=== PATIENT | female | born 1955 | race Two or more races ===

== ENCOUNTER 2016-12-21 20:06 | Emergency (ER) | payer MEDICAID ==
[~2016-12-21] VITALS: Ht 160 cm; Wt 92.0 kg
[2016-12-22] MEDS ORDERED: INSULIN REGULAR (HUMULIN R) 300UNITS/3ML SUBCUT ONE ×2 (00:30→02:00)
[2016-12-22] MEDS ORDERED: SODIUM CHLORIDE 0.9% 500 ML IV ONE (00:30)
[2016-12-22 00:32] LABS: CLARITY URINE CLEAR (CLEAR); COLOR URINE YELLOW (YELLOW); GLUCOSE URINE 3+ (NEGATIVE); KETONES URINE NEGATIVE (NEGATIVE); LEUKOCYTE ESTERASE URINE NEGATIVE (NEGATIVE); NITRITE URINE NEGATIVE (NEGATIVE); OCCULT BLOOD URINE NEGATIVE (NEGATIVE); PH URINE 6.5 (4.5-8.0); PROTEIN URINE NEGATIVE (NEGATIVE); SPECIFIC GRAVITY URINE 1.023 (1.005-1.030); UROBILINOGEN URINE 0.2 E.U./dL (0.2-1.0)
[2016-12-22 00:37] LABS: BASOPHILS % 0.5 % (0.0-2.0); EOSINOPHILS % 0.3 % (0.0-5.0); HEMATOCRIT. 42.6 % (36.0-48.0); HEMOGLOBIN. 14.1 g/dL (12.0-16.0); LYMPHOCYTES % 40.3 % (20.0-50.0); MEAN CORPUSCULAR HGB CONC 33.1 g/dL (31.0-37.0); MEAN CORPUSCULAR VOLUME 84.4 fL (81.0-99.0); MEAN PLATELET VOLUME 9.1 fl (7.4-10.4); MONOCYTES % 6.2 % (2.0-8.0); NEUTROPHILS % 52.7 % (40.0-76.0); PLATELET 220 x1000/uL (130-400); RED BLOOD CELL COUNT 5.04 mill/uL (4.2-5.4); RED CELL DISTRIBUTION WIDTH 14.2 % (11.6-14.6); WHITE BLOOD COUNT 11.7 x1000/uL (4.5-11.0)
[2016-12-22 00:40] LABS: CHLORIDE 95 mEq/L (98-107); INDEX HEMOLYSI 1 (1-3); INDEX ICTERIC 1 (1-4); INDEX LIPEMIC 1 (1-3)
[2016-12-22 00:48] LABS: ALANINE AMINOTRANSFERASE 129 IU/L (13-61); ALBUMIN 3.1 g/dL (3.4-5.0); ANION GAP 15; CALCIUM 9.4 mg/dL (8.5-10.1); CARBON DIOXIDE 28 mEq/L (21-32); UREA NITROGEN BLOOD 16 mg/dL (7-21); eGFR > 60 mL/min (>60)
[2016-12-22 01:11] LABS: SQUAMOUS EPITHELIAL CELL URINE FEW /lpf (RARE/1+)
[2016-12-22 01:12] LABS: BACTERIA URINE TRACE; RBC URINE 0-2 /hpf (0-2); WBC URINE 0-2 /hpf (0-2)
[2016-12-22 01:15] VITALS: BP 135/100
== END 2016-12-22 03:05 | disposition home or self-care (01) ==
LOC: ER 20:29
DX: E11.65 Type 2 diabetes mellitus with hyperglycemia (principal); N17.0 Acute kidney failure with tubular necrosis; E87.8 Other disorders of electrolyte and fluid balance, not elsewhere classified; R74.0 Nonspecific elevation of levels of transaminase and lactic acid dehydrogenase [LDH]; R11.2 Nausea with vomiting, unspecified; R81 Glycosuria; E11.21 Type 2 diabetes mellitus with diabetic nephropathy; E86.0 Dehydration; E87.1 Hypo-osmolality and hyponatremia; R73.9 Hyperglycemia, unspecified; R79.0 Abnormal level of blood mineral; E88.09 Other disorders of plasma-protein metabolism, not elsewhere classified; D72.828 Other elevated white blood cell count; R82.71 Bacteriuria; J45.909 Unspecified asthma, uncomplicated; I10 Essential (primary) hypertension; Z91.14 Patient's other noncompliance with medication regimen; Z98.890 Other specified postprocedural states
CPT/HCPCS: 36415; 71010; 80053; 81001; 82962; 85025; 93005; 96360; 96372; 99285; J1815; J7040; J7030

== ENCOUNTER 2017-04-18 14:00 | Emergency (ER) | payer MEDICAID ==
[~2017-04-18] VITALS: Ht 165.1 cm; Wt 77.0 kg
[2017-04-18] MEDS ORDERED: DIPHENHYDRAMINE 50MG/ML VIAL IV ONE (14:30)
[2017-04-18] MEDS ORDERED: NON FORMULARY PATIENT HOME MED EA XX SCH (14:30)
[2017-04-18] MEDS ORDERED: PROCHLORPERAZINE 10MG/2ML VIAL IV NR (14:45)
[2017-04-18] MEDS ORDERED: SODIUM CHLORIDE 0.9% 1,000 ML IV ONE (15:12)
[2017-04-18 15:43] LABS: EOSINOPHILS % 2.6 % (0.0-5.0); HEMATOCRIT. 40.6 % (36.0-48.0); HEMOGLOBIN. 13.9 g/dL (12.0-16.0); LYMPHOCYTES % 39.2 % (20.0-50.0); MEAN CORPUSCULAR HEMOGLOBIN 28.3 pg (28.0-32.0); MEAN CORPUSCULAR VOLUME 82.4 fL (81.0-99.0); MEAN PLATELET VOLUME 9.7 fl (7.4-10.4); MONOCYTES % 7.1 % (2.0-8.0); NEUTROPHILS % 50.1 % (40.0-76.0); PLATELET 215 x1000/uL (130-400); RED BLOOD CELL COUNT 4.92 mill/uL (4.2-5.4); RED CELL DISTRIBUTION WIDTH 14.6 % (11.6-14.6)
[2017-04-18 15:44] LABS: CLARITY URINE CLEAR (CLEAR); COLOR URINE YELLOW (YELLOW); GLUCOSE URINE 2+ (NEGATIVE); KETONES URINE NEGATIVE (NEGATIVE); LEUKOCYTE ESTERASE URINE NEGATIVE (NEGATIVE); NITRITE URINE NEGATIVE (NEGATIVE); OCCULT BLOOD URINE NEGATIVE (NEGATIVE); PROTEIN URINE 1+ (NEGATIVE); SPECIFIC GRAVITY URINE 1.007 (1.005-1.030); UROBILINOGEN URINE 0.2 E.U./dL (0.2-1.0)
[2017-04-18 15:51] LABS: PROTHROMBIN TIME 10.2 sec
[2017-04-18 15:52] LABS: CARBON DIOXIDE 26 mEq/L (21-32); CHLORIDE 102 mEq/L (98-107)
[2017-04-18 16:00] LABS: BETA HYDROXYBUTYRATE 0.2 mMol/L (0.0-0.3); TROPONIN I < 0.02 ng/mL (0.00-0.04)
[2017-04-18] MEDS ORDERED: MORPHINE SULFATE 4 MG/ML CPJ (NOT FOR IM USE) IV ONE (16:00)
[2017-04-18 17:43] VITALS: BP 154/96
== END 2017-04-18 18:11 | disposition home or self-care (01) ==
LOC: ER 14:15
DX: R51 Headache (principal); E11.65 Type 2 diabetes mellitus with hyperglycemia; I10 Essential (primary) hypertension; J45.909 Unspecified asthma, uncomplicated; Z79.4 Long term (current) use of insulin
CPT/HCPCS: 36415; 70450; 80053; 81001; 82010; 82962; 84484; 85025; 85610; 93005; 96374; 96375; 99285; J0780; J1200; J2270; Z7610; J7030

== ENCOUNTER 2017-07-04 11:59 | Emergency (ER) | payer MEDICAID ==
[~2017-07-04] VITALS: Ht 160 cm; Wt 91.0 kg
[2017-07-04 14:55] LABS: BASOPHILS % 0.9 % (0.0-2.0); EOSINOPHILS % 1.8 % (0.0-5.0); HEMOGLOBIN. 14.2 g/dL (12.0-16.0); LYMPHOCYTES % 41.4 % (20.0-50.0); MEAN CORPUSCULAR HEMOGLOBIN 27.7 pg (28.0-32.0); MEAN CORPUSCULAR VOLUME 81.9 fL (81.0-99.0); MEAN PLATELET VOLUME 8.9 fl (7.4-10.4); MONOCYTES % 5.6 % (2.0-8.0); NEUTROPHILS % 50.3 % (40.0-76.0); PLATELET 212 x1000/uL (130-400); RED BLOOD CELL COUNT 5.12 mill/uL (4.2-5.4); RED CELL DISTRIBUTION WIDTH 13.7 % (11.6-14.6)
[2017-07-04 15:01] LABS: PROTHROMBIN TIME 10.7 sec (9.4-11.6)
[2017-07-04 15:12] LABS: CARBON DIOXIDE 28 mEq/L (21-32); CHLORIDE 102 mEq/L (98-107); TROPONIN I < 0.02 ng/mL (0.00-0.04)
[2017-07-04] MEDS ORDERED: DIPHENHYDRAMINE 25MG CAPSULE PO ONE (15:45)
[2017-07-04] MEDS ORDERED: METOCLOPRAMIDE HCL 5MG TABLET PO ONE (15:45)
[2017-07-04] MEDS ORDERED: ACETAMINOPHEN 325MG TABLET PO ONE (15:45)
[2017-07-04] MEDS ORDERED: KETOROLAC 60MG/2ML VIAL IM ONE (15:45)
[2017-07-04 16:04] LABS: CLARITY URINE CLEAR (CLEAR); COLOR URINE YELLOW (YELLOW); GLUCOSE URINE 1+ (NEGATIVE); KETONES URINE NEGATIVE (NEGATIVE); LEUKOCYTE ESTERASE URINE NEGATIVE (NEGATIVE); NITRITE URINE NEGATIVE (NEGATIVE); OCCULT BLOOD URINE NEGATIVE (NEGATIVE); PROTEIN URINE 1+ (NEGATIVE); UROBILINOGEN URINE 0.2 E.U./dL (0.2-1.0)
[2017-07-04] MEDS ORDERED: METOCLOPRAMIDE HCL 5MG TABLET PO SCH (16:15)
[2017-07-04 17:41] VITALS: BP 145/72
== END 2017-07-04 17:57 | disposition home or self-care (01) ==
LOC: ER 11:59
DX: R51 Headache (principal)
CPT/HCPCS: 36415; 70450; 71010; 80053; 81001; 81025; 83880; 84484; 85025; 85610; 93005; 99285; Z7610; J8597; Q0163

== ENCOUNTER 2018-02-23 09:55 | Emergency (ER) | payer MEDICAID ==
[~2018-02-23] VITALS: Ht 162.6 cm; Wt 92.9 kg
[~2018-02-23 09:55] MED LIST: GLIP10TA10 PO; INSLIS SUBCUT; LANTUSUD SUBCUT; LOSA100T14 PO; METF10002 PO
[2018-02-23] MEDS ORDERED: VALACYCLOVIR HCL 500MG TABLET PO STA (10:58)
[2018-02-23] MEDS ORDERED: PREDNISONE 20MG TABLET PO ONE (11:00)
[2018-02-23 11:11] LABS: CLARITY URINE CLEAR (CLEAR); COLOR URINE YELLOW (YELLOW); KETONES URINE TRACE (NEGATIVE); LEUKOCYTE ESTERASE URINE NEGATIVE (NEGATIVE); NITRITE URINE NEGATIVE (NEGATIVE); OCCULT BLOOD URINE NEGATIVE (NEGATIVE); PROTEIN URINE TRACE (NEGATIVE); SPECIFIC GRAVITY URINE 1.009 (1.005-1.030); UROBILINOGEN URINE 0.2 E.U./dL (0.2-1.0)
[2018-02-23 11:23] LABS: BASOPHILS % 0.8 % (0.0-2.0); HEMATOCRIT. 40.7 % (36.0-48.0); HEMOGLOBIN. 13.9 g/dL (12.0-16.0); LYMPHOCYTES % 37.2 % (20.0-50.0); MEAN CORPUSCULAR HEMOGLOBIN 28.7 pg (28.0-32.0); MEAN CORPUSCULAR VOLUME 83.9 fL (81.0-99.0); MEAN PLATELET VOLUME 8.9 fl (7.4-10.4); MONOCYTES % 6.3 % (2.0-8.0); NEUTROPHILS % 53.7 % (40.0-76.0); PLATELET 209 x1000/uL (130-400); RED BLOOD CELL COUNT 4.85 mill/uL (4.2-5.4); RED CELL DISTRIBUTION WIDTH 13.6 % (11.6-14.6)
[2018-02-23 11:28] LABS: CHLORIDE 100 mEq/L (98-107)
[2018-02-23 11:30] LABS: PROTHROMBIN TIME 10.8 sec (9.4-11.6)
[2018-02-23 11:35] LABS: ETHANOL BLOOD < 10 mg/dL; LDL CHOLESTEROL 90 mg/dL (5-100)
[2018-02-23 11:38] LABS: *AMPHETAMINES SCREEN URINE NEGATIVE (NEGATIVE); *BARBITURATES SCREEN URINE NEGATIVE (NEGATIVE); *BENZODIAZEPINES SCREEN URINE NEGATIVE (NEGATIVE); *COCAINE SCREEN URINE NEGATIVE (NEGATIVE); METHADONE URINE SCREEN NEGATIVE (NEGATIVE)
[2018-02-23 11:39] LABS: CANNABINOID URINE SCREEN NEGATIVE (NEGATIVE); OPIATES URINE SCREEN NEGATIVE (NEGATIVE); PHENCYCLIDINE URINE SCREEN NEGATIVE (NEGATIVE)
[2018-02-23 12:07] VITALS: BP 175/89
== END 2018-02-23 12:46 | disposition home or self-care (01) ==
LOC: ER 10:06 → CANBEDREQ 14:20
DX: G51.0 Bell's palsy (principal); E11.9 Type 2 diabetes mellitus without complications; J45.909 Unspecified asthma, uncomplicated; I10 Essential (primary) hypertension; Z79.4 Long term (current) use of insulin
CPT/HCPCS: 36415; 70450; 71045; 80053; 80305; 81003; 82962; 83721; 84484; 85025; 85610; 93005; 99285; G0482; J7512